=== PATIENT | male | born 1950 | race Caucasian/White ===

== ENCOUNTER 2016-07-05 20:49 | Inpatient (IN) | payer MEDICARE, OTHER ==
[~2016-07-05] VITALS: Ht 172.7 cm; Wt 114.6 kg
[~2016-07-05 20:49] MED LIST: AMLO5TAB66 PO; ASPI81TA2 PO; DICL1OS OU; DSS100 PO; FERR134T2 PO; GLIP10 PO; LEVO50TA11 PO; LISI-662 PO; MET750 PO; METF500T4 PO; OMEP20 PO; OXYC40TA57 PO; PREG75 PO
[2016-07-05 21:12] LABS: GLUCOSE,POINT OF CARE 280 MG/DL (70-110)
[2016-07-05 21:29] LABS: BASOPHILS # (AUTO) 0.04 K/uL (0.00-0.20); BASOPHILS % (AUTO) 0.4 % (0.0-2.0); EOSINOPHILS # (AUTO) 0.36 K/uL (0.00-0.70); EOSINOPHILS % (AUTO) 3.44 % (1.0-6.0); HEMATOCRIT 31.9 % (41-53); HEMOGLOBIN 10.3 g/dL (13.5-17.5); LYMPHOCYTES # (AUTO) 1.5 K/uL (1.0-4.8); LYMPHOCYTES % (AUTO) 14.1 % (22.0-44.0); MEAN CORPUSCULAR HEMOGLOBIN 29.2 pg (26.0-34.0); MEAN CORPUSCULAR HGB CONC 32.4 G/dL (31.0-37.0); MEAN CORPUSCULAR VOLUME 90 fL (80-100); MONOCYTES # (AUTO) 0.8 K/uL (0.1-1.0); MONOCYTES % (AUTO) 7.5 % (2.0-9.0); NEUTROPHILS # (AUTO) 7.9 K/uL (1.8-7.7); NEUTROPHILS % (AUTO) 74.5 % (40.0-70.0); PLATELET COUNT (AUTO) 294 K/uL (150-450); RED BLOOD CELL COUNT(AUTO) 3.54 MIL/uL (4.50-5.90); RED CELL DISTRIBUTION WIDTH 13.4 % (11.5-14.5); WHITE BLOOD COUNT (AUTO) 10.5 K/uL (4.5-11.0)
[2016-07-05] MEDS ORDERED: MORPHINE SULFATE 4 MG/ML SYRINGE IVP ONE (21:30)
[2016-07-05] MEDS ORDERED: ONDANSETRON HCL 4 MG/2 ML VIAL IVP ONE (21:30)
[2016-07-05 21:43] LABS: CALCIUM, TOTAL 8.7 mg/dL (8.8-10.5); CREATININE 1.39 mg/dL (0.60-1.30); POTASSIUM 4.8 mmol/L (3.5-5.1)
[2016-07-05 21:50] LABS: ALBUMIN 2.9 g/dL (3.4-5.0); BILIRUBIN,TOTAL 0.3 mg/dL (0.1-1.0); TOTAL PROTEIN, SERUM 7.5 g/dL (6.4-8.2)
[2016-07-05] MEDS ORDERED: VANCOMYCIN HCL 1 GM/D5% WATER 200 ML IV ONE (22:00)
[2016-07-05] MEDS ORDERED: INSULIN REGULAR, HUMAN 100 UNITS/ML IVP ONE (22:15)
[2016-07-05] MEDS ORDERED: METHOCARBAMOL 750 MG TABLET PO PRN (23:30)
[2016-07-05] MEDS ORDERED: DOCUSATE SODIUM 100 MG CAPSULE PO SCH (23:30)
[2016-07-06] MEDS ORDERED: 0.9% SODIUM CHLORIDE 10 ML SYRINGE IVP PRN
[2016-07-06] MEDS ORDERED: OxyCODONE HCL/ACETAMINOPHEN 5-325 MG TABLET PO PRN
[2016-07-06] MEDS ORDERED: ONDANSETRON HCL 4 MG/2 ML VIAL IVP PRN
[2016-07-06 00:15] VITALS: BP 118/61
[2016-07-06] MEDS ORDERED: DEXTROSE 50%-WATER 25 GM/50 ML SYRINGE IVP PRN (00:15)
[2016-07-06] MEDS: PREGABALIN 75 MG CAPSULE PO SCH ×3 (00:24→20:53)
[2016-07-06] MEDS: DOCUSATE SODIUM 100 MG CAPSULE PO SCH ×3 (00:24→20:54)
[2016-07-06] MEDS: OxyCODONE HCL 40 MG ER TABLET PO SCH ×3 (00:25→20:53)
[2016-07-06] MEDS: OMEPRAZOLE 20 MG CAPSULE PO SCH ×3 (00:25→20:53)
[2016-07-06] MEDS ORDERED: VANCOMYCIN HCL 1 GM/D5% WATER 200 ML IV ONE (02:00)
[2016-07-06] MEDS ORDERED: SODIUM CHLORIDE 0.9% 250 ML IV ONE (02:01)
[2016-07-06] MEDS ORDERED: PNEUMOCOCCAL VACCINE POLYVALENT 0.5 ML VIAL [PPSV23] IM ONE (03:15)
[2016-07-06 04:00] VITALS: BP 129/63
[2016-07-06] MEDS: METHOCARBAMOL 500 MG TABLET PO PRN (05:36)
[2016-07-06] MEDS: LEVOTHYROXINE SODIUM 50 MCG TABLET PO SCH (05:36)
[2016-07-06 06:45] LABS: BASOPHILS # (AUTO) 0.04 K/uL (0.00-0.20); BASOPHILS % (AUTO) 0.4 % (0.0-2.0); EOSINOPHILS # (AUTO) 0.38 K/uL (0.00-0.70); HEMATOCRIT 29.6 % (41-53); HEMOGLOBIN 9.7 g/dL (13.5-17.5); LYMPHOCYTES # (AUTO) 1.9 K/uL (1.0-4.8); LYMPHOCYTES % (AUTO) 18.4 % (22.0-44.0); MEAN CORPUSCULAR HEMOGLOBIN 29.4 pg (26.0-34.0); MEAN CORPUSCULAR HGB CONC 32.7 G/dL (31.0-37.0); MEAN CORPUSCULAR VOLUME 90 fL (80-100); MONOCYTES # (AUTO) 0.9 K/uL (0.1-1.0); MONOCYTES % (AUTO) 8.4 % (2.0-9.0); NEUTROPHILS % (AUTO) 68.9 % (40.0-70.0); PLATELET COUNT (AUTO) 276 K/uL (150-450); RED BLOOD CELL COUNT(AUTO) 3.29 MIL/uL (4.50-5.90); RED CELL DISTRIBUTION WIDTH 13.2 % (11.5-14.5); WHITE BLOOD COUNT (AUTO) 10.1 K/uL (4.5-11.0)
[2016-07-06 06:47] LABS: GLUCOSE,POINT OF CARE 139 MG/DL (70-110)
[2016-07-06 06:55] LABS: CALCIUM, TOTAL 8.6 mg/dL (8.8-10.5); CREATININE 1.27 mg/dL (0.60-1.30); POTASSIUM 4.7 mmol/L (3.5-5.1)
[2016-07-06 07:26] VITALS: BP 148/75
[2016-07-06] MEDS: ASPIRIN 81 MG CHEWABLE TABLET PO SCH (07:53)
[2016-07-06] MEDS: AmLODIPine BESYLATE 5 MG TABLET PO SCH (07:53)
[2016-07-06] MEDS: FERROUS SULFATE 325 MG EC TABLET PO SCH (07:54)
[2016-07-06] MEDS: LISINOPRIL 20 MG TABLET PO SCH (07:54)
[2016-07-06] MEDS: VANCOMYCIN HCL 1 GM/D5% WATER 200 ML IV SCH ×2 (07:54→20:53)
[2016-07-06] MEDS ORDERED: PANTOPRAZOLE SODIUM 40 MG/VIAL IVP SCH (09:00)
[2016-07-06 11:28] LABS: GLUCOSE,POINT OF CARE 183 MG/DL (70-110)
[2016-07-06 12:41] VITALS: BP 120/96
[2016-07-06 15:33] VITALS: BP 111/53
[2016-07-06] MEDS: OxyCODONE HCL/ACETAMINOPHEN 5-325 MG TABLET PO PRN ×2 (16:23→23:24)
[2016-07-06] MEDS: HEPARIN SODIUM,PORCINE 5,000 UNITS/ML VIAL SQ SCH ×2 (16:24→23:15)
[2016-07-06 16:37] LABS: GLUCOSE,POINT OF CARE 149 MG/DL (70-110)
[2016-07-06 19:56] VITALS: BP 125/62
[2016-07-06] MEDS: INSULIN ASPART 100 UNITS/ML SQ PRN (21:10)
[2016-07-07] VITALS (7 sets, daily range): BP systolic 120–151; BP diastolic 56–73
[2016-07-07] MEDS: LEVOTHYROXINE SODIUM 50 MCG TABLET PO SCH (06:15)
[2016-07-07] MEDS: INSULIN ASPART 100 UNITS/ML SQ PRN ×4 (06:15→22:11)
[2016-07-07 06:17] LABS: GLUCOSE,POINT OF CARE 155 MG/DL (70-110)
[2016-07-07 06:17] LABS: GLUCOSE,POINT OF CARE 191 MG/DL (70-110)
[2016-07-07 07:11] LABS: CALCIUM, TOTAL 8.8 mg/dL (8.8-10.5); CREATININE 1.67 mg/dL (0.60-1.30); POTASSIUM 5.5 mmol/L (3.5-5.1)
[2016-07-07] MEDS: DOCUSATE SODIUM 100 MG CAPSULE PO SCH ×2 (08:33→20:01)
[2016-07-07] MEDS: FERROUS SULFATE 325 MG EC TABLET PO SCH (08:33)
[2016-07-07] MEDS: OxyCODONE HCL 40 MG ER TABLET PO SCH ×2 (08:33→20:03)
[2016-07-07] MEDS: ASPIRIN 81 MG CHEWABLE TABLET PO SCH (08:33)
[2016-07-07] MEDS: AmLODIPine BESYLATE 5 MG TABLET PO SCH (08:33)
[2016-07-07] MEDS: PREGABALIN 75 MG CAPSULE PO SCH ×2 (08:33→20:01)
[2016-07-07] MEDS: OMEPRAZOLE 20 MG CAPSULE PO SCH ×2 (08:33→20:01)
[2016-07-07] MEDS: HEPARIN SODIUM,PORCINE 5,000 UNITS/ML VIAL SQ SCH ×2 (08:34→17:22)
[2016-07-07] MEDS: VANCOMYCIN HCL 750 MG in DEXTROSE 5%-WATER 150 ML IV SCH ×2 (08:35→21:33)
[2016-07-07] MEDS: LISINOPRIL 20 MG TABLET PO SCH (08:35)
[2016-07-07] MEDS ORDERED: AMLO-512 PO (11:11)
[2016-07-07] MEDS ORDERED: LISI-661 PO (11:11)
[2016-07-07] MEDS ORDERED: SODIUM CHLORIDE 0.9% 500 ML IV ONE (11:15)
[2016-07-07 11:26] LABS: GLUCOSE,POINT OF CARE 271 MG/DL (70-110)
[2016-07-07 17:37] LABS: GLUCOSE COMMENT 1 Received Meds; GLUCOSE,POINT OF CARE 261 MG/DL (70-110)
[2016-07-07] MEDS: ATORVASTATIN CALCIUM 20 MG TABLET PO SCH (20:01)
[2016-07-07] MEDS: OxyCODONE HCL/ACETAMINOPHEN 5-325 MG TABLET PO PRN (20:04)
[2016-07-08] MEDS ORDERED: SODIUM CHLORIDE 0.9% 250 ML IV ONE (00:52)
[2016-07-08] MEDS: HEPARIN SODIUM,PORCINE 5,000 UNITS/ML VIAL SQ SCH ×3 (00:56→16:20)
[2016-07-08 01:01] LABS: GLUCOSE COMMENT 1 Received Meds; GLUCOSE,POINT OF CARE 234 MG/DL (70-110)
[2016-07-08] MEDS: OxyCODONE HCL/ACETAMINOPHEN 5-325 MG TABLET PO PRN (01:01)
[2016-07-08] MEDS ORDERED: SODIUM POLYSTYRENE SULFONATE 15 GM/60 ML SUSPENSION BOTTLE PO ONE (03:45)
[2016-07-08 05:24] VITALS: BP 128/54
[2016-07-08] MEDS: LEVOTHYROXINE SODIUM 50 MCG TABLET PO SCH (06:42)
[2016-07-08] MEDS: INSULIN ASPART 100 UNITS/ML SQ PRN ×4 (06:46→21:35)
[2016-07-08 07:37] VITALS: BP 94/61
[2016-07-08] MEDS: VANCOMYCIN HCL 750 MG in DEXTROSE 5%-WATER 150 ML IV SCH ×2 (08:46→21:21)
[2016-07-08] MEDS: DOCUSATE SODIUM 100 MG CAPSULE PO SCH ×2 (09:08→21:20)
[2016-07-08] MEDS: OxyCODONE HCL 40 MG ER TABLET PO SCH ×2 (09:08→21:21)
[2016-07-08] MEDS: ASPIRIN 81 MG CHEWABLE TABLET PO SCH (09:08)
[2016-07-08] MEDS: AmLODIPine BESYLATE 5 MG TABLET PO SCH (09:08)
[2016-07-08] MEDS: FERROUS SULFATE 325 MG EC TABLET PO SCH (09:08)
[2016-07-08] MEDS: PREGABALIN 75 MG CAPSULE PO SCH ×2 (09:09→21:20)
[2016-07-08] MEDS: OMEPRAZOLE 20 MG CAPSULE PO SCH ×2 (09:09→21:21)
[2016-07-08 09:56] LABS: CALCIUM, TOTAL 8.8 mg/dL (8.8-10.5); CREATININE 1.55 mg/dL (0.60-1.30); POTASSIUM 4.7 mmol/L (3.5-5.1)
[2016-07-08 11:32] LABS: GLUCOSE COMMENT 1 Received Meds; GLUCOSE,POINT OF CARE 205 MG/DL (70-110)
[2016-07-08 11:37] LABS: GLUCOSE,POINT OF CARE 231 MG/DL (70-110)
[2016-07-08 11:41] VITALS: BP 115/61
[2016-07-08 15:57] VITALS: BP 143/77
[2016-07-08 16:32] LABS: GLUCOSE,POINT OF CARE 237 MG/DL (70-110)
[2016-07-08 19:41] VITALS: BP 108/72
[2016-07-08] MEDS: ATORVASTATIN CALCIUM 20 MG TABLET PO SCH (21:20)
[2016-07-08 22:22] LABS: GLUCOSE COMMENT 1 Received Meds; GLUCOSE,POINT OF CARE 281 MG/DL (70-110)
[2016-07-08 23:21] VITALS: BP 140/58
[2016-07-09] MEDS ORDERED: MIDAZOLAM HCL 2 MG/2 ML VIAL IVP ONE (00:46)
[2016-07-09] MEDS ORDERED: FentaNYL CITRATE-PF 100 MCG/2 ML VIAL IVP ONE (00:46)
[2016-07-09] MEDS ORDERED: PROPOFOL 1% 20 ML VIAL IVP ONE (00:46)
[2016-07-09] MEDS ORDERED: ONDANSETRON HCL 4 MG/2 ML VIAL IVP ONE (00:46)
[2016-07-09] MEDS ORDERED: LIDOCAINE HCL/PF 2% 5 ML VIAL IM ONE (00:46)
[2016-07-09] MEDS ORDERED: METOCLOPRAMIDE HCL 5 MG/ML 2 ML VIAL IVP ONE (00:46)
[2016-07-09] MEDS: HEPARIN SODIUM,PORCINE 5,000 UNITS/ML VIAL SQ SCH ×3 (01:51→16:00)
[2016-07-09 05:13] VITALS: BP 134/67
[2016-07-09 06:12] LABS: GLUCOSE,POINT OF CARE 203 MG/DL (70-110)
[2016-07-09 06:26] LABS: BASOPHILS % (AUTO) 0.3 % (0.0-2.0); HEMATOCRIT 28.7 % (41-53); HEMOGLOBIN 9.3 g/dL (13.5-17.5); LYMPHOCYTES % (AUTO) 20.4 % (22.0-44.0); MEAN CORPUSCULAR HGB CONC 32.3 G/dL (31.0-37.0); MEAN CORPUSCULAR VOLUME 90 fL (80-100); MONOCYTES # (AUTO) 0.9 K/uL (0.1-1.0); MONOCYTES % (AUTO) 9.2 % (2.0-9.0); NEUTROPHILS # (AUTO) 6.6 K/uL (1.8-7.7); NEUTROPHILS % (AUTO) 68.1 % (40.0-70.0); PLATELET COUNT (AUTO) 254 K/uL (150-450); RED BLOOD CELL COUNT(AUTO) 3.19 MIL/uL (4.50-5.90); RED CELL DISTRIBUTION WIDTH 13.2 % (11.5-14.5); WHITE BLOOD COUNT (AUTO) 9.6 K/uL (4.5-11.0)
[2016-07-09] MEDS: LEVOTHYROXINE SODIUM 50 MCG TABLET PO SCH (06:30)
[2016-07-09] MEDS: INSULIN ASPART 100 UNITS/ML SQ PRN ×3 (06:49→20:21)
[2016-07-09 06:59] LABS: CALCIUM, TOTAL 8.9 mg/dL (8.8-10.5); CREATININE 1.23 mg/dL (0.60-1.30); POTASSIUM 4.5 mmol/L (3.5-5.1)
[2016-07-09 07:28] VITALS: BP 152/78
[2016-07-09] MEDS ORDERED: SODIUM CHLORIDE 0.9% 1,000 ML IV ONE (07:30)
[2016-07-09] MEDS ORDERED: BUPIVACAINE HCL/PF 0.5% 30 ML VIAL ONE (07:44)
[2016-07-09] MEDS ORDERED: LIDOCAINE HCL/PF 1% 2 ML VIAL ONE ×2 (07:46)
[2016-07-09] MEDS ORDERED: LIDOCAINE HCL/PF 1% 30 ML VIAL ONE (07:47)
[2016-07-09] MEDS ORDERED: SODIUM CHLORIDE 0.9% IRRIG ONE (07:48)
[2016-07-09] MEDS: FERROUS SULFATE 325 MG EC TABLET PO SCH (07:56)
[2016-07-09] MEDS: ASPIRIN 81 MG CHEWABLE TABLET PO SCH (07:57)
[2016-07-09] MEDS: DOCUSATE SODIUM 100 MG CAPSULE PO SCH ×2 (07:57→20:22)
[2016-07-09] MEDS: PREGABALIN 75 MG CAPSULE PO SCH ×2 (07:58→20:22)
[2016-07-09] MEDS: OxyCODONE HCL 40 MG ER TABLET PO SCH ×2 (07:58→20:22)
[2016-07-09] MEDS: AmLODIPine BESYLATE 5 MG TABLET PO SCH (07:59)
[2016-07-09] MEDS: OMEPRAZOLE 20 MG CAPSULE PO SCH ×2 (07:59→20:22)
[2016-07-09] MEDS: VANCOMYCIN HCL 750 MG in DEXTROSE 5%-WATER 150 ML IV SCH ×2 (08:14→20:22)
[2016-07-09] MEDS ORDERED: HYDROmorphone 2 MG/ML SYRINGE IVP PRN (08:45)
[2016-07-09] MEDS ORDERED: MEPERIDINE-PF 25 MG/ML SYRINGE IVP PRN (08:45)
[2016-07-09] MEDS ORDERED: FentaNYL CITRATE-PF 100 MCG/2 ML VIAL IVP PRN (08:45)
[2016-07-09] MEDS ORDERED: GELATIN SPONGE,ABSORBABLE 100 MM TP ONE (08:49)
[2016-07-09] MEDS ORDERED: THROMBIN, BOVINE 20000 UNITS/VIAL POWDER TP ONE (08:51)
[2016-07-09] MEDS ORDERED: OXYGEN THERAPY IH SCH (09:08)
[2016-07-09 11:40] VITALS: BP 152/67
[2016-07-09] MEDS: OxyCODONE HCL/ACETAMINOPHEN 5-325 MG TABLET PO PRN (12:57)
[2016-07-09 16:02] VITALS: BP 142/57
[2016-07-09] MEDS: METHOCARBAMOL 500 MG TABLET PO PRN (16:26)
[2016-07-09 19:57] LABS: GLUCOSE COMMENT 1 Received Meds; GLUCOSE,POINT OF CARE 168 MG/DL (70-110)
[2016-07-09 20:16] VITALS: BP 152/67
[2016-07-09 20:16] LABS: GLUCOSE COMMENT 1 Received Meds; GLUCOSE,POINT OF CARE 288 MG/DL (70-110)
[2016-07-09] MEDS: ATORVASTATIN CALCIUM 20 MG TABLET PO SCH (20:21)
[2016-07-10] VITALS (7 sets, daily range): BP systolic 110–152; BP diastolic 51–72
[2016-07-10] MEDS: OxyCODONE HCL/ACETAMINOPHEN 5-325 MG TABLET PO PRN (01:17)
[2016-07-10] MEDS: LEVOTHYROXINE SODIUM 50 MCG TABLET PO SCH (05:37)
[2016-07-10] MEDS: INSULIN ASPART 100 UNITS/ML SQ PRN ×3 (05:38→21:11)
[2016-07-10 07:06] LABS: ANION GAP 7 mmol/L (8-16); CALCIUM, TOTAL 8.9 mg/dL (8.8-10.5); CARBON DIOXIDE 26 mmol/L (22-29); CHLORIDE 104 mmol/L (98-107); CREATININE 1.19 mg/dL (0.60-1.30); GLOMERULAR FILTR. RATE CALC > 60 mL/min (>60); POTASSIUM 4.6 mmol/L (3.5-5.1); SODIUM SERUM 137 mmol/L (136-145); UREA NITROGEN, BLOOD 16 mg/dL (7-18)
[2016-07-10] MEDS: VANCOMYCIN HCL 750 MG in DEXTROSE 5%-WATER 150 ML IV SCH ×2 (07:38→20:23)
[2016-07-10] MEDS: DOCUSATE SODIUM 100 MG CAPSULE PO SCH ×2 (07:39→20:23)
[2016-07-10] MEDS: FERROUS SULFATE 325 MG EC TABLET PO SCH (07:39)
[2016-07-10] MEDS: OxyCODONE HCL 40 MG ER TABLET PO SCH ×2 (07:40→20:23)
[2016-07-10] MEDS: ASPIRIN 81 MG CHEWABLE TABLET PO SCH (07:40)
[2016-07-10] MEDS: AmLODIPine BESYLATE 5 MG TABLET PO SCH (07:41)
[2016-07-10 07:42] LABS: GLUCOSE COMMENT 1 Received Meds; GLUCOSE,POINT OF CARE 273 MG/DL (70-110)
[2016-07-10] MEDS: OMEPRAZOLE 20 MG CAPSULE PO SCH ×2 (07:52→20:22)
[2016-07-10] MEDS: PREGABALIN 75 MG CAPSULE PO SCH ×2 (07:53→20:22)
[2016-07-10 18:12] LABS: GLUCOSE COMMENT 1 Received Meds; GLUCOSE,POINT OF CARE 306 MG/DL (70-110)
[2016-07-10] MEDS: ATORVASTATIN CALCIUM 20 MG TABLET PO SCH (20:23)
[2016-07-10 21:17] LABS: GLUCOSE,POINT OF CARE 226 MG/DL (70-110)
[2016-07-11 05:18] VITALS: BP 122/55
[2016-07-11] MEDS: OxyCODONE HCL/ACETAMINOPHEN 5-325 MG TABLET PO PRN (05:44)
[2016-07-11] MEDS: LEVOTHYROXINE SODIUM 50 MCG TABLET PO SCH (05:44)
[2016-07-11] MEDS: INSULIN ASPART 100 UNITS/ML SQ PRN ×2 (05:56→12:11)
[2016-07-11 06:53] LABS: ANION GAP 7 mmol/L (8-16); CALCIUM, TOTAL 8.9 mg/dL (8.8-10.5); CARBON DIOXIDE 27 mmol/L (22-29); CHLORIDE 104 mmol/L (98-107); CREATININE 1.01 mg/dL (0.60-1.30); GLOMERULAR FILTR. RATE CALC > 60 mL/min (>60); POTASSIUM 4.2 mmol/L (3.5-5.1); SODIUM SERUM 138 mmol/L (136-145); UREA NITROGEN, BLOOD 12 mg/dL (7-18)
[2016-07-11 07:10] VITALS: BP 149/61
[2016-07-11] MEDS: DOCUSATE SODIUM 100 MG CAPSULE PO SCH (08:10)
[2016-07-11] MEDS: ASPIRIN 81 MG CHEWABLE TABLET PO SCH (08:10)
[2016-07-11] MEDS: FERROUS SULFATE 325 MG EC TABLET PO SCH (08:10)
[2016-07-11] MEDS: OxyCODONE HCL 40 MG ER TABLET PO SCH (08:11)
[2016-07-11] MEDS: PREGABALIN 75 MG CAPSULE PO SCH (08:11)
[2016-07-11] MEDS: AmLODIPine BESYLATE 5 MG TABLET PO SCH (08:11)
[2016-07-11] MEDS: OMEPRAZOLE 20 MG CAPSULE PO SCH (08:11)
[2016-07-11] MEDS: VANCOMYCIN HCL 750 MG in DEXTROSE 5%-WATER 150 ML IV SCH (08:21)
[2016-07-11 11:10] VITALS: BP 138/64
[2016-07-11 11:47] LABS: GLUCOSE,POINT OF CARE 220 MG/DL (70-110)
[2016-07-11] MEDS ORDERED: ATOR20TA86 PO (13:16)
[2016-07-11] MEDS ORDERED: AMOX1TAB16 PO (13:17)
[2016-07-12 00:42] LABS: GLUCOSE COMMENT 1 Received Meds; GLUCOSE,POINT OF CARE 206 MG/DL (70-110)
[2016-07-12 17:22] LABS: GLUCOSE,POINT OF CARE 241 MG/DL (70-110)
[2016-07-13 07:16] LABS: GLUCOSE,POINT OF CARE 162 MG/DL (70-110)
== END 2016-07-11 16:00 | disposition home health service (06) | DRG 616 ==
LOC: EMS 20:50 → 6N 22:08
PROVIDERS: ADMIT Internal Medicine; ATTEND Internal Medicine
PROC: 0Y6N0ZB Detachment at Left Foot, Partial 2nd Ray, Open Approach (ICD-10-PCS; 2016-07-09)
PROC: 0Q9R0ZZ Drainage of Left Toe Phalanx, Open Approach (ICD-10-PCS; 2016-07-09)
PROC: 0Y6N0Z9 Detachment at Left Foot, Partial 1st Ray, Open Approach (ICD-10-PCS; principal; 2016-07-09 08:30)
DX: E11.621 Type 2 diabetes mellitus with foot ulcer (principal); E43 Unspecified severe protein-calorie malnutrition; M86.8X8 Other osteomyelitis, other site; I13.0 Hypertensive heart and chronic kidney disease with heart failure and stage 1 through stage 4 chronic kidney disease, or unspecified chronic kidney disease; L97.329 Non-pressure chronic ulcer of left ankle with unspecified severity; B96.89 Other specified bacterial agents as the cause of diseases classified elsewhere; K21.9 Gastro-esophageal reflux disease without esophagitis; E03.9 Hypothyroidism, unspecified; I50.9 Heart failure, unspecified; E11.51 Type 2 diabetes mellitus with diabetic peripheral angiopathy without gangrene; F17.210 Nicotine dependence, cigarettes, uncomplicated; E11.21 Type 2 diabetes mellitus with diabetic nephropathy; E66.9 Obesity, unspecified; N18.9 Chronic kidney disease, unspecified; E11.22 Type 2 diabetes mellitus with diabetic chronic kidney disease; I25.10 Atherosclerotic heart disease of native coronary artery without angina pectoris; N17.9 Acute kidney failure, unspecified; E11.65 Type 2 diabetes mellitus with hyperglycemia; E11.69 Type 2 diabetes mellitus with other specified complication; Z79.899 Other long term (current) drug therapy; Z79.82 Long term (current) use of aspirin; Z89.422 Acquired absence of other left toe(s); Z79.4 Long term (current) use of insulin; Z68.38 Body mass index [BMI] 38.0-38.9, adult
CPT/HCPCS: 73718; 73721; 82962; 85651; 87040; 87070; 87205; 88300; 88305; 88311; 93971; 96365; 96366; 96375; 99285; C9113; J1644; J1815; J2250; J2270; J2405; J2704; J2765; J3010; J3370; J3490; J7030; J7040; J7050; J7060

== ENCOUNTER 2017-04-26 16:11 | Emergency (ER) | payer MEDICARE, OTHER ==
[~2017-04-26] VITALS: Ht 167.6 cm; Wt 107.3 kg
[~2017-04-26 16:11] MED LIST changes: +AMLO-512 PO; -AMLO5TAB66 PO; +AMOX1TAB16 PO; -ASPI81TA2 PO; +ASPI81TA39 PO; +ATOR20TA86 PO; +LISI-661 PO; -LISI-662 PO
[2017-04-26 16:27] LABS: GLUCOSE,POINT OF CARE 162 MG/DL (70-110)
[2017-04-26] MEDS ORDERED: CEPH500 PO (16:27)
[2017-04-26 19:23] LABS: BASOPHILS % (AUTO) 0.4 % (0.0-2.0); EOSINOPHILS % (AUTO) 2.4 % (1.0-6.0); HEMATOCRIT 29.7 % (41-53); HEMOGLOBIN 9.9 g/dL (13.5-17.5); LYMPHOCYTES % (AUTO) 18.7 % (22.0-44.0); MEAN CORPUSCULAR HEMOGLOBIN 28.5 pg (26.0-34.0); MEAN CORPUSCULAR HGB CONC 33.5 G/dL (31.0-37.0); MEAN CORPUSCULAR VOLUME 85 fL (80-100); MONOCYTES # (AUTO) 0.8 K/uL (0.1-1.0); MONOCYTES % (AUTO) 7.1 % (2.0-9.0); NEUTROPHILS # (AUTO) 7.7 K/uL (1.8-7.7); NEUTROPHILS % (AUTO) 71.4 % (40.0-70.0); PLATELET COUNT (AUTO) 292 K/uL (150-450); RED BLOOD CELL COUNT(AUTO) 3.48 MIL/uL (4.50-5.90); RED CELL DISTRIBUTION WIDTH 14.3 % (11.5-14.5)
[2017-04-26 19:53] LABS: CALCIUM, TOTAL 9.8 mg/dL (8.8-10.5); CREATININE 1.25 mg/dL (0.60-1.30); POTASSIUM 4.4 mmol/L (3.5-5.1)
[2017-04-26 20:00] LABS: LACTIC ACID 1.7 mmol/L (0.4-2.0)
[2017-04-26 20:06] LABS: ALBUMIN 3.1 g/dL (3.4-5.0); BILIRUBIN,TOTAL 0.1 mg/dL (0.1-1.0); TOTAL PROTEIN, SERUM 8.1 g/dL (6.4-8.2)
[2017-04-26] MEDS ORDERED: TraMADol HCL 50 MG TABLET PO ONE (21:00)
[2017-04-26] MEDS ORDERED: SULFAMETHOX/TRIMETH DS 800-160 MG/TABLET PO ONE (21:15)
[2017-04-26 21:49] VITALS: BP 135/62
== END 2017-04-26 21:51 | disposition home or self-care (01) ==
LOC: EMS 16:23
DX: L97.529 Non-pressure chronic ulcer of other part of left foot with unspecified severity (principal); I11.0 Hypertensive heart disease with heart failure; I50.9 Heart failure, unspecified; E11.9 Type 2 diabetes mellitus without complications; K21.9 Gastro-esophageal reflux disease without esophagitis; E03.9 Hypothyroidism, unspecified; F17.210 Nicotine dependence, cigarettes, uncomplicated; Z79.4 Long term (current) use of insulin; Z79.899 Other long term (current) drug therapy; Z71.6 Tobacco abuse counseling
CPT/HCPCS: 82962; 83605; 87040; 99284; 99406

== ENCOUNTER 2017-05-11 13:49 | Emergency (ER) | payer MEDICARE, OTHER ==
[~2017-05-11] VITALS: Ht 165.1 cm; Wt 107.0 kg
[~2017-05-11 13:49] MED LIST changes: -AMOX1TAB16 PO; -ATOR20TA86 PO; +CEPH500 PO; -LISI-661 PO
[2017-05-11] MEDS ORDERED: BACTDSB PO (13:57)
[2017-05-11 15:07] LABS: BASOPHILS % (AUTO) 0.2 % (0.0-2.0); EOSINOPHILS % (AUTO) 0.3 % (1.0-6.0); HEMATOCRIT 26.8 % (41-53); HEMOGLOBIN 9.1 g/dL (13.5-17.5); LYMPHOCYTES # (AUTO) 0.8 K/uL (1.0-4.8); LYMPHOCYTES % (AUTO) 8.2 % (22.0-44.0); MEAN CORPUSCULAR HGB CONC 33.9 G/dL (31.0-37.0); MEAN CORPUSCULAR VOLUME 86 fL (80-100); MONOCYTES # (AUTO) 0.4 K/uL (0.1-1.0); MONOCYTES % (AUTO) 4.1 % (2.0-9.0); PLATELET COUNT (AUTO) 220 K/uL (150-450); RED BLOOD CELL COUNT(AUTO) 3.13 MIL/uL (4.50-5.90); RED CELL DISTRIBUTION WIDTH 14.5 % (11.5-14.5)
[2017-05-11 15:23] LABS: NEUTROPHILS % (AUTO) 87.2 % (40.0-70.0)
[2017-05-11 15:41] LABS: BILIRUBIN,TOTAL 0.2 mg/dL (0.1-1.0); CALCIUM, TOTAL 8.8 mg/dL (8.8-10.5); CREATININE 2.19 mg/dL (0.60-1.30); TOTAL PROTEIN, SERUM 7.3 g/dL (6.4-8.2)
[2017-05-11 16:16] LABS: POTASSIUM 5.9 mmol/L (3.5-5.1)
[2017-05-11] MEDS ORDERED: FERR-89 PO (16:36)
[2017-05-11] MEDS ORDERED: SODIUM POLYSTYRENE SULFONATE 15 GM/60 ML SUSPENSION BOTTLE PO ONE (16:45)
[2017-05-11] MEDS ORDERED: SODIUM CHLORIDE 0.9% 1,000 ML IV ONE (16:45)
[2017-05-11 18:29] LABS: AMPHET/METH SCREEN,URINE NEGATIVE (NEGATIVE); BARBITURATE SCREEN, URINE NEGATIVE (NEGATIVE); BENZODIAZEPINES SCREEN,URINE NEGATIVE (NEGATIVE); CANNABINOID SCREEN,URINE NEGATIVE (NEGATIVE); COCAINE SCREEN,URINE NEGATIVE (NEGATIVE); METHADONE SCREEN, URINE NEGATIVE (NEGATIVE); OPIATE SCREEN,URINE POSITIVE (NEGATIVE)
[2017-05-11 18:34] LABS: PHENCYCLIDINE SCREEN,URINE NEGATIVE (NEGATIVE)
[2017-05-11 19:45] VITALS: BP 154/96
[2017-05-11 20:39] LABS: APPEARANCE,URINE CLEAR (CLEAR); BILIRUBIN,URINE NEGATIVE (NEGATIVE); GLUCOSE, URINE (UA) NEGATIVE (NEGATIVE); KETONES,URINE NEGATIVE (NEGATIVE); LEUKOCYTE ESTERASE ,URINE NEGATIVE (NEGATIVE); NITRATE,URINE POSITIVE (NEGATIVE); OCCULT BLOOD,URINE NEGATIVE (NEGATIVE); PROTEIN,URINE NEGATIVE (NEGATIVE); UROBILINOGEN,URINE 0.2 mg/dL (<=1.0)
[2017-05-11 20:58] LABS: BACTERIA,URINE Moderate /HPF (None Seen); RBC,URINE None Seen /HPF (0-2); SQUAMOUS EPITHELIAL CELL,UR Few /LPF (None Seen); WBC,URINE 0-2 /HPF (0-5)
== END 2017-05-11 21:18 | disposition short-term general hospital (02) ==
LOC: EMS 13:50
DX: I13.0 Hypertensive heart and chronic kidney disease with heart failure and stage 1 through stage 4 chronic kidney disease, or unspecified chronic kidney disease (principal); E11.22 Type 2 diabetes mellitus with diabetic chronic kidney disease; N18.9 Chronic kidney disease, unspecified; I50.9 Heart failure, unspecified; N17.9 Acute kidney failure, unspecified; E11.621 Type 2 diabetes mellitus with foot ulcer; L97.429 Non-pressure chronic ulcer of left heel and midfoot with unspecified severity; E87.5 Hyperkalemia; E87.1 Hypo-osmolality and hyponatremia; T37.0X5A Adverse effect of sulfonamides, initial encounter; K21.9 Gastro-esophageal reflux disease without esophagitis; F17.210 Nicotine dependence, cigarettes, uncomplicated; E03.9 Hypothyroidism, unspecified; E66.01 Morbid (severe) obesity due to excess calories; Z68.38 Body mass index [BMI] 38.0-38.9, adult
CPT/HCPCS: 36415; 74022; 80053; 80307; 81001; 82962; 83690; 84484; 85025; 87077; 87086; 87186; 93005; 96360; 99285; J7030